=== PATIENT | female | born 1940 | race Caucasian/White ===

== ENCOUNTER 2018-12-10 11:35 | Inpatient (IN) | payer OTHER, MEDICAID ==
[~2018-12-10] VITALS: Ht 165.1 cm; Wt 60.0 kg
[2018-12-10 11:48] VITALS: Ht 165.1 cm; Wt 60.0 kg
--- NOTE | 2018-12-10 11:53 | NUR ---
PT SANJIV FROM HOME WITH CC OF PERIUMBILICAL ABD PAIN SINCE TODAY. PER MEDIC PT HAS HX OF PANCREATIC CA. PER MEDIC PT WAS HAVING N/V WELL AND TOOK HER AT HOME ZOFRAN WHICH HELPED WITH THE N/V. AT THIS TIME PT IS AWAKE AND ALERT AND ABLE TO FOLLOW ALL COMMANDS. PER MEDIC PT COMES IN AND OUT OF BECOMING ALTERED. PT STATES PAIN IS CONSTANT AND DULL. PT IS RECLINING ON GURNEY WITH NAD. PT HOOKED UP TO FULL MONITORS, SIDE RAILS UP, CALL LIGHT IN REACH, WILL CONTINUE TO MONITOR.
[2018-12-10 12:32] LABS: PLATELET COUNT 235 x10^3mcL (130-400); RED CELL DISTRIBUTION WIDTH 14.5 % (11.5-14.5)
[2018-12-10 12:33] LABS: BASOPHIL % 0 % (0-2)
--- NOTE | 2018-12-10 12:41 | NUR ---
PT DAUGHTER AT BEDSIDE. PT DAUGHTER STATES THAT HER MOM WASNT ANSWERING, SO SHE WENT OVER AND FOUND HER MOM LAYING IN BED WITH A HEATING PAD ON STOMACH AND ALTERED. STATES THAT IT DID LOOK LIKE SHE HAD EATEN BFAST. PT DAUGHTER STATES THAT PT HAS BEEN ALTERED OVER THE LAST COUPLE OF DAYS AND HALLUCINATING. DAUGHTER REQUESTING FOR FOOT PRESS OPERATOR DUE TO PT LIVING ALONE. MADE AWARE.
[2018-12-10 12:59] LABS: CALCIUM 9.9 mg/dL (8.5-10.1); CARBON DIOXIDE 18.2 mmol/L (21-32); CHLORIDE SERUM 96 mmol/L (98-107); CREATININE SERUM 1.6 mg/dL (0.6-1.0); GLUCOSE SERUM 380 mg/dL (74-106); POTASSIUM SERUM 4.1 mmol/L (3.5-5.1); SODIUM SERUM 132 mmol/L (136-145)
[2018-12-10 13:02] LABS: AST/SGOT 409 U/L (15-37); LIPASE 14 IU/L (73-393)
[2018-12-10 13:20] LABS: ALKALINE PHOSPHATASE 278 U/L (46-116); ALT/SGPT 176 U/L (14-59); BILIRUBIN TOTAL 1.64 mg/dL (0.20-1.00); TOTAL PROTEIN, SERUM 6.3 g/dL (6.4-8.2)
[2018-12-10 13:50] LABS: UA SPECIFIC GRAVITY 1.025 (1.005-1.035); microscopic required? YES; urine erythrocyte NEGATIVE (NEGATIVE)
--- NOTE | 2018-12-10 14:02 | NUR ---
GIVEN WATER; OKAY PER DR ROSS.
--- NOTE | 2018-12-10 14:57 | NUR ---
PT RESTING COMFORTABLY ON THE GURNEY WITH NAD. FAMILY REAMINS AT BEDSIDE. WILL CONTINUE TO MONITOR.
--- NOTE | 2018-12-10 15:22 | NUR ---
PT REQUESTING WATER. OK PER
--- NOTE | 2018-12-10 19:08 | NUR ---
[facility] NOTIFIED THAT FAMILY WOULD LIKE TO COMPLAIN ABOUT THE TRANSFER ATTEMPTS.
--- NOTE | 2018-12-10 19:20 | NUR ---
RECIEVED REPORT FROM NEGRITO, ASSUMING FURTHER CARE OF PT AT THIS TIME. PT IS A&0X4, SPEAKING CLEAR SENTENCES. APPEARS DROWSY BUT AROUSABLE BY VERBAL STIMULI. PT C/O NO PAIN AT THIS TIME. FAMILY AT BEDSIDE. WILL CONTINUE TO MONITOR.
--- NOTE | 2018-12-10 19:29 | NUR ---
DR ROSS AT BEDSIDE SPEAKING WITH PT AND FAMILY ABOUT PLAN OF CARE.
--- NOTE | 2018-12-10 19:45 | NUR ---
PT TO CT VIA [facility]
[2018-12-10] MEDS ORDERED: ZOFRAN4 M2 PO (19:52)
[2018-12-10] MEDS ORDERED: NORCO1 TA2 PO (19:52)
[2018-12-10] MEDS ORDERED: CREON1 EC1 PO (19:53)
[2018-12-10] MEDS ORDERED: PRE50 PO (19:53)
[2018-12-10] MEDS ORDERED: AMARYL4 MG PO (19:54)
[2018-12-10] MEDS ORDERED: POTASSIUM CHLO10 MEQ PO (19:54)
[2018-12-10] MEDS ORDERED: GABAPENTIN300 M4 PO (19:55)
[2018-12-10] MEDS ORDERED: IMODIUM A-1 MG/7.51 PO (19:55)
[2018-12-10] MEDS ORDERED: SYNTHROID0.112 MG PO (19:56)
[2018-12-10] MEDS ORDERED: FLAGYL500 MG PO (19:57)
[2018-12-10] MEDS ORDERED: CIPRO250 MG PO (19:57)
[2018-12-10] MEDS ORDERED: PROCARDIA XL30 MG PO (19:57)
--- NOTE | 2018-12-10 20:27 | NUR ---
PT OPENS EYES TO VERBAL STIMULI AND RESPONDS WITH GRUNTING SOUNDS, UNABLE TO RESPOND IN FULL CLEAR SENTENCES. DR HICKS MADE AWARE. NO FURTHER ORDERS AT THIS TIME.
--- NOTE | 2018-12-10 20:39 | NUR ---
DR HICKS MADE AWARE OF PTS BP OF 79/53 MAP OF 61. PER DR HICKS, START INPATIENT IV NS FLUID. IV FLUIDS RUNNING AT ORDERED RATE. CM [address] HICKS AT BEDSIDE SPEAKING WITH FAMILY AND ASSESSING PATIENT. PT ANSWERED "WHAT" CLEARLY WHEN ATTEMPTING TO TALK TO PT. PT STILL OPENS EYES TO VERBAL STIMULI. BREATHING EVEN AND UNLABORED. WILL CONTINUE TO MONITOR.
--- NOTE | 2018-12-10 20:58 | NUR ---
PT OBSERVED MOVING BUE AT THIS TIME. PT ABLE TO ANSWER "NO" CLEARLY WHEN ASKED IF SHE IS IN PAIN. DR HICKS AT BEDSIDE SPEAKING WITH FAMILY ABOUT PLAN OF CARE. WILL CONTINUE TO MONITOR.
--- NOTE | 2018-12-10 21:10 | NUR ---
LAB AT BEDSIDE.
--- NOTE | 2018-12-10 22:00 | NUR ---
PER DR HICKS LEVOPHED INITIATED AT 2 MCG/MIN FOR BP OF 88/54 MAP 65.
--- NOTE | 2018-12-10 22:05 | NUR ---
LEVOPHED MAINTAINED AT 2 MCG/MIN FOR BP OF 93/58 MAP 70
--- NOTE | 2018-12-10 22:10 | NUR ---
LEVOPHED MAINTAINED AT 2 MCG/MIN FOR BP AT 94/56 MAP 68
--- NOTE | 2018-12-10 22:16 | NUR ---
LEVOPHED INCREASED TO 4 MCG/MIN FOR BP 93/51 MAP 64.
--- NOTE | 2018-12-10 22:25 | NUR ---
CONSENT SIGNED FOR CENTRAL LINE PLACMENT AND PLACE IN PTS CHART.
--- NOTE | 2018-12-10 22:27 | NUR ---
LEVOPHED MAINTAINED AT 4 MCG/MIN FOR BP 102/47 MAP 74
--- NOTE | 2018-12-10 22:46 | NUR ---
DR HICKS AT BEDSIDE FOR CENTRAL LINE PLACEMENT.
--- NOTE | 2018-12-10 23:01 | NUR ---
PER GAYTAN TO USE CENTRAL LINE.
--- NOTE | 2018-12-10 23:02 | NUR ---
CALLED REPORT TO BARBARA MATOS IN ICU.
--- NOTE | 2018-12-10 23:09 | NUR ---
PT TRANSFERED TO ICU BED 3 VIA [facility] [place] ACCOMPANIED EMT QUIRINO AND RN LYN. PT AWAKENS TO VERBAL STIMULI. PT OBSERVED MOVING AROUND ON GURNEY. PT RESPONDS WITH SINGLE WORDS CLEARLY AND GRUNTING SOUNDS BUT IS NOT SPEAKING FULL SENTENCES. PT OPENS EYES SPONTANEOUSLY. FAMILY VERBALIZED UNDERSTANDING OF PLAN OF CARE. IV FLUIDS ENDORSED TO BARBARA MATOS IN ICU. FAMILY ACCOMPANIED PT TO ICU,
--- NOTE | 2018-12-10 23:15 | NUR ---
PT TRANSFERRED FOR ER VIA [facility] ACCOMPANIED BY RN AND EMT. PT TRANSFERRED TO ICU BED WITH FULL ASSIST. PT IS A/O X1 (NAME ONLY). PT WITH REPETITVE SPEECH WHEN ASKED SIMPLE QUESTIONS, PT WILL ONLY ANSWER WITH HER NAME. SPEECH CLEAR. PERRLA NOTED. NO INDICATIONS OF PAIN PER FLACC SCALE. NO ACUTE DISTRESS NOTED. NO SOB NOTED, RESPS E/U ON O2 2LPM VIA NC. CHEST RISE EQUAL AND SYMMETRICAL. LUNG SOUNDS CTA. TERMINOLOGIST IN PLACE SHOWING ST WITH HR 125. CHEST WALL STABLE. RIJ CVC INTACT, PORTS PATENT, DSG CDI. PER SYD MATOS IN ER, DR HICKS GAVE OKAY TO USE CENTRAL LINE. ALL LINES TRANSFERRED TO CENTRAL LINE, ALL LINES FLUSHED AND PATENT WITH GOOD BLOOD RETURN. IVF NS INFUSING @ 80ML/HR. LEVOPHED INFUSING @ 4 MCG/MIN. IV TO RFA AND LFA INTACT AND PATENT, NO S/SX OF INFILTRATION NOTED. ABD SOFT, ROUND, NONTENDER TO TOUCH. NO DISTENTION NOTED. BOWEL SOUNDS HYPOACTIVE. PTS DAUGHTER AT BEDSIDE PT HAS NOT URINATED THE WHOLE DAY. BLADDER SCAN DONE SHOWING 350ML, WILL INSERT F/C. GEN WEAKNESS NOTED. PT RESTLESS ATTMEPTING TO PULL ON LINES. BUE SOFT WRIST RESTRAINTS PLACED FOR PT SAFETY. FAMILY TEACHING PROVIDED, VERBALIZED UNDERSTANDING AND AGREED TO PLACE RESTRAINTS. UPDATED FAMILY ON PLAN OF CARE, ALL QUESTIONS AND CONCERNS ADDRESSED. CALL LIGHT WITHIN REACH. WILL CONTINUE TO MONITOR.
[2018-12-10 23:42] VITALS: BP 110/56
--- NOTE | 2018-12-11 00:30 | NUR ---
BP 95/62 MAP 73, LEVOPHED TITRATED TO 2 MCG/MIN.
--- NOTE | 2018-12-11 00:45 | NUR ---
PT CLEAN AND DRY. BLADDER SCAN DONE WITH RESIDUAL 375. 16FR F/C INSERTED AT EASE. 400ML YELLOW COLORED URINE NOTED. PT TOLERATED WELL.
--- NOTE | 2018-12-11 00:47 | NUR ---
BP 109/61 MAP 81, LEVOPHED TITRATED TO 1 MCG/MIN.
--- NOTE | 2018-12-11 01:18 | NUR ---
BP 78/51 MAP 60, LEVOPHED TITRATED TO 3 MCG/MIN.
--- NOTE | 2018-12-11 01:30 | NUR ---
BP 105/62 MAP 78, LEVOPHED TITRATED TO 2 MCG/MIN.
[2018-12-11 03:04] VITALS: BP 88/63
--- NOTE | 2018-12-11 05:14 | NUR ---
BP 125/59 MAP 96, LEVOPHED TITRATED TO 1 MCG/MIN.
--- NOTE | 2018-12-11 05:30 | NUR ---
BS 64; PT GIVEN D10% 250ML BAG INFUSING OVER 1 HR PER MD ORDER. WILL CONTINUE TO MONITOR.
[2018-12-11 05:49] LABS: BASOPHIL % 0.1 % (0-2); PLATELET COUNT 187 x10^3mcL (130-400)
[2018-12-11 05:52] LABS: CALCIUM 8.9 mg/dL (8.5-10.1); CARBON DIOXIDE 19.9 mmol/L (21-32); CHLORIDE SERUM 101 mmol/L (98-107); CREATININE SERUM 1.8 mg/dL (0.6-1.0); GLUCOSE SERUM 64 mg/dL (74-106); MAGNESIUM 1.3 mg/dL (1.8-2.4); SODIUM SERUM 128 mmol/L (136-145)
[2018-12-11 05:53] LABS: RED CELL DISTRIBUTION WIDTH 14.9 % (11.5-14.5)
--- NOTE | 2018-12-11 06:47 | NUR ---
REPORT ABNORMAL LABS TO DR ESTEVEZ. ORDER GIVEN FOR MAG SULFATE 4MG IV X1 NOW. TELEPHONE ORDER READ BACK. ORDER NOTED AND CARRIED OUT.
--- NOTE | 2018-12-11 06:47 | NUR ---
FLOR HALL CALLED, UPDATED ON STATUS. ALL QUESTIONS AND CONCERNS ADDRESSED.
--- NOTE | 2018-12-11 06:54 | NUR ---
BP 96/54 MAP 70, LEVOPHED TURNED OFF AT THIS TIME
[2018-12-11 07:47] VITALS: BP 115/60
--- NOTE | 2018-12-11 08:43 | NUR ---
PROVIDED PT STATUS UPDATES TO DR. HANSON. MADE AWARE TO DR. HANSON THAT PT IS OFF LEVOPHED AND PT'S WBC IS ELEVATED TO 26.9. RECIEVED NO NEW ORDES.
--- NOTE | 2018-12-11 10:29 | NUR ---
LACTIC ACID 3.9, DR. VALENTIN MARQUES.
[2018-12-11 11:11] VITALS: BP 104/61
--- NOTE | 2018-12-11 13:38 | NUR ---
ATTEMPTED TO FEED PT AT BEDSIDE, PT COMPLAINED FOOD DOESN'T TASTE GOOD AND REFUSE LUNCH AFTER TAKING COULE OF BITES OF FOOD. SON IS AT BEDSIDE.
--- NOTE | 2018-12-11 13:39 | NUR ---
SPOKE WITH DR HANSON AND REPORTED LACTIC AND POSITIVE BLOOD CULTURE OF OF GRAM NEGATIVE BACILLI. NEW ORDERS RECEIVED TO DUANE EDWARDS AND CLYDE AND PATIENT STABLE TO TRANSFER TO TELE. WILL CARRY OUT ORDERS.
[2018-12-11 15:02] VITALS: BP 116/69
--- NOTE | 2018-12-11 16:56 | NUR ---
REPORT GIVEN TO VALENTIN MATOS. WILL TRANSFER BY BED WITH PORTABLE O2 TO ROOM 210B. PT HAS ALL PERSONAL BELONGINGS.
--- NOTE | 2018-12-11 17:35 | NUR ---
RECEIVED PATIENT FROM ICU. PATIENT ALERT/DISORIETED. B/S = 52, REPEATED BS 54. SUGAR ADDED APPLE JUICE 120CC PO GIVEN. TELE #2, SR W/ BBB; HR = 90. V/S = 98.2-90-18-123/64 (93); P2 SAT 96% ON 2L VIA N/C. IVF OF NS 80CC/HR PER ORDER. CENTRAL LINE TO RIJ W/ DRSG INTACT. IVHL'D TO RFA AND LAC. SKINNER PATENT. NEGRITO URINE NOTED. DAILY WRIST SOFT RESTRAINTS ON. DENIED PAIN. CALL LIGHT IN REACH.
[2018-12-11 17:48] VITALS: BP 123/64
--- NOTE | 2018-12-11 19:18 | NUR ---
PT WAS SEEN SITTING ON THE EDGE OF THE BED, PT IS CONFUSED. PT'S CENTRAL LINE WAS SEEN AT THE BEDSIDE, TIP WAS INTACT, NO S/S OF BLEEDING NOTED. PT WAS ALSO SEEN HOLDING THE PERIPHERAL IV CATHETER GAUGE 22, CATHETER WAS ALSO INTACT, NO BLEEDING NOTED. DR. HANSON WAS MADE AWARE.
--- NOTE | 2018-12-11 19:35 | NUR ---
PT PULLED OUT ANOTHER PERIPHERAL IV LINE, NOTED PIV CATHETER GAUGE 20 ON THE FLOOR, CATHETER WAS INTACT. PT PLACED BACK ON BED, PLACED BACK ON BILATERAL SOFT WRIST RESTRAINTS, NO INJURY NOTED TO THE AREA. STILL W/ SKINNER CATHETER DRAINING W/ YELLOW COLORED URINE. PRIMARY NURSE DEVORAH AT BEDSIDE
--- NOTE | 2018-12-11 20:03 | NUR ---
Awake and verbally responsive. Alert and oriented x1. Agitated, restless. notified about the restraints and new order for haldol IM. Will medicated as ordered. Pt. not on distress.
--- NOTE | 2018-12-11 20:13 | NUR ---
Awake, restless and agitated. Trying to pull out snow catheter and get out of bed. uncooperative with staff. Tried to calm down and reassurance provided but very confused and disoriented. No indication of understanding. Exhibits poor safety judgement. Medicated as ordered with Haldol IM. Will cont.to monitor.
[2018-12-11 21:10] VITALS: BP 115/88
--- NOTE | 2018-12-11 21:15 | NUR ---
Resting at this time with eyes closed. Easily arousable. Calm and cooperative. Will cont.to monitor. Safety maintained.
--- NOTE | 2018-12-12 01:00 | NUR ---
Woke up, restless and agitated. Pulled out IV and tried to get out of bed. Stated" Bring me to the hospital".Oriented to place and time but remained confused and disoriented. Will cont.to monitor.
--- NOTE | 2018-12-12 02:05 | NUR ---
Asleep at this time.
--- NOTE | 2018-12-12 04:09 | NUR ---
Remained confused and disoriented. Bilateral soft wrist restraints in placed. Released and reapplied Q2h x10min. ROM performed. No circulatory impairment. Repositioned for comfort. In no apparent distress.
[2018-12-12 06:06] VITALS: BP 182/102
[2018-12-12 06:37] VITALS: BP 134/65
[2018-12-12 06:39] LABS: ALKALINE PHOSPHATASE 173 U/L (46-116); ALT/SGPT 115 U/L (14-59); AST/SGOT 154 U/L (15-37); BILIRUBIN TOTAL 1.57 mg/dL (0.20-1.00); CALCIUM 8.4 mg/dL (8.5-10.1); CARBON DIOXIDE 20.5 mmol/L (21-32); CHLORIDE SERUM 107 mmol/L (98-107); CREATININE SERUM 1.5 mg/dL (0.6-1.0); MAGNESIUM 2.3 mg/dL (1.8-2.4); POTASSIUM SERUM 3.5 mmol/L (3.5-5.1); SODIUM SERUM 140 mmol/L (136-145)
[2018-12-12 06:55] LABS: PLATELET COUNT 129 x10^3mcL (130-400); RED CELL DISTRIBUTION WIDTH 15.5 % (11.5-14.5)
--- NOTE | 2018-12-12 07:00 | NUR ---
FSBS=35, REPEATED=39 D10% 250MLS IV GIVEN PER PROTOCOL. RECHECKED ZELF=213 AFTER. PT.AWAKE AND VERBALLY RESPONSIVE. REFUSING TO TAKE ANYTHING BY MOUTH. RECEIVED CRITICAL LAB VALUE WBC=20.1, PAGED DR. HANSON TO NOTIFY. WAITING FOR CALL BACK.
--- NOTE | 2018-12-12 07:30 | NUR ---
RECEIVED PT FROM SCHEME TECHNICIAN RN. ORIENTED TO SELF. TELE#2. RESPIRATIONS EQUAL AND UNLABORED ON RA. NO ACUTE RESP DISTRESS NOTED. PT ATTEMPTING TO TAKE OFF RESTRAINTS AND REMOVE IV. PT REFUSING TO EAT BREAKFAST, IV TO RFA PATENT AND INFUSING, NO REDNESS OR SWELLING NOTED. BILATERAL SOFT WRIST RESTRAINTS IN PLACE, CIRCULATION WNL. SITTER AT BEDSIDE. WILL CONTINUE TO MONITOR. CALL LIGHT IN REACH. BED IN LOWEST POSITION.
[2018-12-12 07:41] LABS: ALBUMIN 2.1 g/dL (3.4-5.0); TOTAL PROTEIN, SERUM 5.1 g/dL (6.4-8.2)
[2018-12-12 07:46] LABS: GLUCOSE SERUM 40 mg/dL (74-106)
--- NOTE | 2018-12-12 08:01 | NUR ---
SPOKE WITH DR. HANSON REGARDING GLUCOSE LEVEL OF 40. PER DR. HANSON ORDERED D5 1/2 NS AT 60 ML/HR. CONFIRMED ORDER TORB.
[2018-12-12 10:49] LABS: BAND NEUTROPHIL 8 % (0-10); BASOPHIL 0 % (0-2); MONOCYTE 5 % (0-7); SEGMENTED NEUTROPHILS 86 % (37-75)
[2018-12-12 10:51] LABS: PLATELET MORPHOLOGY PLATELETS DECREASED
[2018-12-12 10:52] LABS: burr cell (echinocyte) 2+; rbc morphology (normal/abnorm) ABNORMAL (NORMAL)
--- NOTE | 2018-12-12 11:10 | NUR ---
PT IN BED RESTING. NO ACUTE RESP DISTRESS NOTED ON RA. PT CONFUSED FORGETTING WHERE SHE IS. PT IS MORE CALM AND ASKING WHY SHE HAS RESTRAINTS ON. REORIENTED PT. FAMILY AT BEDSIDE. REMOVED ONE RESTRAINTS. GIVEN PO MEDS. TOLERATED WELL. FAMILY WOULD LIKE TO SPEAK WITH FURNACE ATTENDANT STEWART REGARDING HOSPICE. FURNACE ATTENDANT STEWART MADE AWARE. WILL CONTINUE TO MONITOR. CALL LIGHT IN REACH. BED IN LOWEST POSITION.
--- NOTE | 2018-12-12 12:56 | NUR ---
PT SITTING UP IN BED. NO ACUTE RESP DISTRESS NOTED ON RA. IV PATENT AND INFUSING TO RW. NO REDNESS OR SWELLING NOTED. SKINNER CATHETER REMOVED 950 ML OF CLEAR YELLOW URINE EMPTIED. PT TOLERATED WELL. BLOOD SUGAR CHECKED WAS 88. NO COVERAGE NEEDED. GIVEN PO MEDS. TOLERATED WELL. PT EATING LUNCH. FAMILY AT BEDSIDE. WILL CONTINUE TO MONITOR. CALL LIGHT IN REACH. BED IN LOWEST POSITION.
--- NOTE | 2018-12-12 13:19 | NUR ---
1. Recommend Glucerna BID d/t poor PO. 2.Recommend continuing CCHO diet. 3.Diet education provided
--- NOTE | 2018-12-12 13:19 | NUR ---
Initial Nutrition Assessment- 210T/B YAMILEX HOWARD IA HR Dx: Abd pain, pancreatic CA PMHx: DM, Pancreatic CA PSHx: not documented Labs: BG 40L, BUN 28H, CREAT 1.5H, ALB 2.1L, A1C 7.9H, AST 154H, ALT 115H, WBC 20.1H Meds: Colace, NS, D10%, humulin, pancrease, Zofran, heparin Diet: CCHO PO Intake: not documented. Per pt, <50% Ht: 165.1 cm (65") Wt: 60kg (132#) BMI: 22 kg/m2 IBW: 125# (57 kg) %IBW: 105 UBW: pt was unaware Age: 78/F Food Allergies: NKFA Skin: BUE ecchymosis Avinash: 18 Edema: none GI: last BM: 12/10 Per H&P, patient is an 78-year-old Female with history of pancreatitic cancer who was brought in by EMS for evaluation of epigastric and right lower quadrant abdominal pain today. The patient believes she had an episode of diarrhea this morning. The patient is unable to tell me when she had cancer and is not quite sure if she is receiving chemotherapy at this time. Per progress note (12/12) pt has Sepsis/septic shock due to Gram-negative bacteremia. MD to continue antibiotic therapy currently on Zosyn since 12/10. RDN visit(12/12): Pt was not very willing to answer questions. Daughter came by bedside after sometime. Pt said that she did not eat her breakfast this morning because she did not take enough effort to eat it. Pt at first seemed reluctant to drink oral nutritional supplement by later agreed to it. Pt's daughter said that pt had consumed oral nutritional supplements like ensure in the past. Problem with: N/V/D/C: no Problems with: Chewing/Swallowing: no Current appetite: fair Recent wt change: patient unaware Vitamin/Supplement use: per daughter, pt has a box full of MVI, potassium and vitamin D but pt says she does not consume it. Special diet at home: Regular Physical activity: none Education: Diet education pertaining to MNT for pancreatic cancer was given using [facility] handout on "Oncology: nutrition tips for well-being" Estimated Nutritional Needs Based on actual body weight 60 kg Energy: 6455-1884 kcal/d (30-35 kcal/kg- Sepsis) Protein: 72-78 g/d (1.2-1.3 g/kg)-maintenance and preservation of lean body mass Fluid: 6122-3765 ml/d (1 ml/kcal-fluid balance) or per doctor Nutrition Diagnosis 1. Inadequate oral intake related to poor appetite/medical condition as evidenced by self-reported PO <50%. 2. Increased nutrient needs related to sepsis as evidenced by WBC 20.1 and estimated calorie and protein needs. Intervention 1. Recommend Glucerna BID d/t poor PO. 2.Recommend continuing CCHO diet. 3.Diet education provided. Monitor/Evaluate Goal: PO intake at least 75% of estimated needs Monitor: PO intake, Labs, GI function F/U in 2-3 days as high risk
--- NOTE | 2018-12-12 13:23 | NUR ---
CALLED AND GAVE REPORT SIDRA MATOS AT [facility].
--- NOTE | 2018-12-12 13:39 | NUR ---
SPOKE WITH DR. HANSON INFORMED HIM FAMILY WOULD LIKE TO SPEAK WITH HIM REGARDING PT POC. PER DR. HANSON HE WILL CALL BACK LATER.
--- NOTE | 2018-12-12 17:35 | NUR ---
PT SITITNG UP IN BED. SON AT BEDSIDE. NO ACUTE RESP DISTRESS NOTED ON RA. PT DENIES ANY PAIN AT THIS TIME. PT CALM AND COOPERATIVE AT THIS TIME. GIVEN PO MEDS. TOLERATED WELL. IV PATENT AND INFUSING TO RW. NO REDNESS OR SWELLING NOTED. WILL CONTINUE TO MONITOR. CALL LIGHT IN REACH. BED IN LOWEST POSITION.
--- NOTE | 2018-12-12 18:51 | NUR ---
PT SITTING UP IN BED. PT STILL CONFUSED. PT BELIEVES SHES IN A GARAGE. TELE#2. SON AT BEDSIDE. PT CALM AT THIS TIME. PT ATE DINNER, TOLERATED WELL. PT DENIES ANY PAIN AT THIS TIME. IV TO RW PATENT AND INFUSING. NO REDNESS OR SWELLING NOTED. WILL ENDORSE TO [employer] SYSTEMS ASSEMBLER RN. CALL LIGHT IN REACH. BED IN LOWEST POSITION.
--- NOTE | 2018-12-12 19:30 | NUR ---
RECIEVED PATIENT AT START OF SHIFT A/O TO SELF ONLY. PATIENT IS AGITATED BECAUSE SHE BELIEVES SHE IS BEING KEPT IN THE HOSPITAL BASEMENT, DESPITE EFFORTS TO RE-ORIENT PAIENT TO REALITY. SON AND NURSE ASSESSOR AT BEDSIDE TO KEEP PATIENT CALM. ON TELE #2 SR WITH BBB. LUNGS CTAB, NO SOB ON RA. ABDOMEN SOFT AND FLAT, BS ACTIVE. SPOTTED PURPLE DISCOLORATION NOTED TO BUE. IV TO RW INFUSING WITHOUT ERYTHEMA OR INFILTRATION. BED LOCKED AND IN LOWEST POITION. CALL LIGHT AND BEDSIDE TABLE WITHIN REACH. WILL CONTINUE TO MONITOR.
--- NOTE | 2018-12-12 20:00 | NUR ---
PATIENT IS BECOMING INCREASINGLY AGITATED. SHE IS YELLING THAT SHE WANTS OUT OF THE BASEMENT. EFFORTS TO CALM PATIENT AND REORIENT PATIENT HAVE FAILED. WILL ADMINISTER HALDOL IM PER EMAR.
--- NOTE | 2018-12-12 20:30 | NUR ---
PATIENT IS MUCH MORE RELAXED. EYES CLOSED, BREATHS EVEN. STUMMEL SELECTOR AT BEDSIDE TO MONITOR.
[2018-12-12 21:00] VITALS: BP 161/90
--- NOTE | 2018-12-13 00:01 | NUR ---
PATIENT IS AGITATED AND RESTLESS AGAIN. TELEPHONE ORDER OBTAINED FOR ATIVAN [address] WALLER. GIVEN PER EMAR.
--- NOTE | 2018-12-13 00:45 | NUR ---
PATIENT IS RELAXED AGIAN, EYES CLOSED, BREATHS EVEN.
--- NOTE | 2018-12-13 05:45 | NUR ---
PATIENT'S BLOOD GLUCOUSE THIS MORNING WAS 49. REPEAT SUAGAR WAS 47.PATIENT IS ALERT AND RESPONSIVE. FOLLOWS COMMANDS. PROTOCOL INITIATED. DEX 10% 250 MLS/ HR STARTED. WILL RECHECK SUGAR ONCE COMPLETED.
[2018-12-13 05:49] VITALS: BP 156/85
[2018-12-13 05:52] LABS: RED CELL DISTRIBUTION WIDTH 14.4 % (11.5-14.5)
[2018-12-13 06:38] LABS: ALKALINE PHOSPHATASE 200 U/L (46-116); ALT/SGPT 87 U/L (14-59); AST/SGOT 68 U/L (15-37); BILIRUBIN TOTAL 0.63 mg/dL (0.20-1.00); CALCIUM 8.9 mg/dL (8.5-10.1); CARBON DIOXIDE 23.7 mmol/L (21-32); CHLORIDE SERUM 108 mmol/L (98-107); CREATININE SERUM 1.2 mg/dL (0.6-1.0); POTASSIUM SERUM 3.6 mmol/L (3.5-5.1); SODIUM SERUM 141 mmol/L (136-145)
[2018-12-13 06:39] LABS: ALBUMIN 2.2 g/dL (3.4-5.0); TOTAL PROTEIN, SERUM 5.4 g/dL (6.4-8.2)
[2018-12-13 06:40] LABS: GLUCOSE SERUM 54 mg/dL (74-106)
--- NOTE | 2018-12-13 06:53 | NUR ---
BLOOD SUGAR HAS IMPROVED TO 146. PATIENT IS COMFORTABLE IN BED. IV INFUSING WELL, NO ERYTHEMA OR INFILTRATION. BED LOCKED AND IN LOWEST POSIITON. CALL LIGHT WITHIN REACH. WILL ENDORSE CARE TO MORNING NURSE.
[2018-12-13 07:29] LABS: PLATELET COUNT 109 x10^3mcL (130-400)
--- NOTE | 2018-12-13 08:23 | NUR ---
REPORT RECEIVED. ASLEEP ON HANDOFF REPORT. RR 16. CALL ROOT WITHIN REACH. BED LOW AND LOCKED. SCDS APPLIED.
--- NOTE | 2018-12-13 09:20 | NUR ---
MD HANSON ASSESSED PT. TO DC CENTRAL LINE RIGHT NECK TODAY. SITTER IN ROOM BED LOW AND LOCKED. NO COMPLAINTS AT THIS TIME.
[2018-12-13 10:04] VITALS: BP 179/101
--- NOTE | 2018-12-13 10:41 | NUR ---
BP 179/101. ASYMPTOMATIC. PLACED A PAGE TO DR. HANSON.
[2018-12-13 10:50] VITALS: BP 167/88
--- NOTE | 2018-12-13 12:06 | NUR ---
DR. HANSON RETURNED MY CALL AND INFORMED HIM RE HIGH BP, REFUSAL TO WORK WITH PT. ORDER GIVEN. MIDODRINE DISCONTINUED
[2018-12-13 13:49] LABS: BAND NEUTROPHIL 0 % (0-10); BASOPHIL 0 % (0-2); MONOCYTE 1 % (0-7); PLATELET MORPHOLOGY PLATELETS NORMAL; SEGMENTED NEUTROPHILS 92 % (37-75); rbc morphology (normal/abnorm) NORMAL (NORMAL)
--- NOTE | 2018-12-13 15:35 | NUR ---
TAKING OVER CARE FROM MAIA MATOS. PT WET AND UNCOOPERATIVE. PT GOT UP TO CHAIR WITHOUT AND REGARD OF HER IV. SHE WET WHILE SITTING UP IN THE CHAIR. CHANGED GOWN TWICE. SINCE TAKING OVER CARE.
--- NOTE | 2018-12-13 16:22 | NUR ---
PTS DTR FLOR WANTS TO SPEAK TO ABOUT HOSPICE. SHE WANTS TO KNOW IF PT REALLY NEEDS TO BE ON HOSPICE. T.C. TO DR. ALEXANDRE OFFICE WHO IS RHEUMATOLOGY NURSE FOR DR. ESTEVEZ ALSO NEED TO SPEAK TO RE: PTS ELEVATED BP.
[2018-12-13 16:24] VITALS: BP 181/102
--- NOTE | 2018-12-13 19:15 | NUR ---
PT RECEIVED A/O X2, WITH EPISODES OF CONFUSION, ABLE TO MAKE NEEDS KNOWN. TELE #2, DENIES ANY CP/PRESSURE. BREATHING IS EVEN AND UNLABORED ON RA, DENIES SOB, NO RESP DISTRESS NOTED. ABD SOFT AND NONDISTENDED, DENIES N/V. VOIDS FREELY, PT USES BEDPAN, BUT MAY HAVE EPISODES OF URINARY INCONTINENCE. GENERALIZED WEAKNESS. ECCHYMOSIS TO BUE, CHIROPRACTIC NEUROLOGIST. PT DENIES HAVING ANY PAIN AT THIS TIME. IVF INFUSING WELL TO RH, SITE FREE FROM REDNESS OR SWELLING. NO ACUTE DISTRESS NOTED. EXCEPTIONAL CHILDREN'S TEACHER AT BEDSIDE TO ASSIST WITH ADLs. BED IN LOWEST SETTING, SIDE RAILS UP X2, CALL LIGHT WITHIN REACH. WILL CONT TO MONITOR.
--- NOTE | 2018-12-13 19:17 | NUR ---
SLEEPING OFF AND ON. NO C/O PAIN. CONTENT MANAGER HELPFUL WITH BRP. P.T. WANTS TO KEEP PT ON SERVICE. D51/2 NS 60 CC HOUR. ZOSYN AND FLAGYL IV ABX. DTR FLOR IS TRYING TO MAKE DECISION TO WHETHER PT SHOULD GO HOME ON HOSPICE OR NOT. NEW ORDER FOR METOPROLOL. ASSIST WITH ADL'S. BED ALARM ON AND CALL LIGHT WITHIN REACH.
[2018-12-13 21:56] VITALS: BP 177/97
--- NOTE | 2018-12-13 22:05 | NUR ---
PT C/O 12/31 GENERALIZED BODY PAIN, PRN TYLENOL GIVEN ORDERED. NO ACUTE DISTRESS NOTED. CALL LIGHT WITHIN REACH. WILL CONT TO MONITOR.
[2018-12-14 06:38] VITALS: BP 162/88
--- NOTE | 2018-12-14 07:05 | NUR ---
RECEIVED BEDSIDE REPORT FROM AMPHIBIAN CREWMEMBER NURSE AT THIS TIME. PATIENT RESTING COMFORTABLY IN BED. NO APPARENT DISTRESS OR DISCOMFORT NOTED. BREATHING EVEN AND UNLABORED. PATIENT DENIES SHORTNESS OF BREATH. PATIENT DENIES CHEST PAIN AT THIS TIME. TELE [address] BUE ECHYMOSIS NOTED. IV PATENT AND INTACT. ALL QUESTIONS AND CONCERNS ADDRESSED. ALL NEEDS ATTENDED TO. SITTER AT BEDSIDE TO PROMOTE PATIENT SAFETY. WILL CONTINUE TO MONITOR
[2018-12-14 07:06] LABS: PLATELET COUNT 86 x10^3mcL (130-400); RED CELL DISTRIBUTION WIDTH 15.2 % (11.5-14.5)
--- NOTE | 2018-12-14 07:26 | NUR ---
PT SLEPT WELL THROUGHOUT THE EVENING. BREATHING IS EVEN AND UNLABORED, NO RESP DISTRESS NOTED. PT C/O 6/10 BACK PAIN, PRN TYLENOL GIVEN ORDERED. IVF INFUSING WELL TO RH, SITE FREE FROM REDNESS OR SWELLING. NO ACUTE CHANGES ENCOUNTERED DURING SHIFT. ALL NEEDS MET. PRINCIPAL LIBRARIAN AT BEDSIDE TO ASSIST WITH ADLs. BED ALARM ON, CALL LIGHT WITHIN REACH. CONTINUITY OF CARE ENDORSED TO ROMMEL MATOS. ALL QUESTIONS AND CONCERNS ADDRESSED.
[2018-12-14 07:32] LABS: ALKALINE PHOSPHATASE 255 U/L (46-116); ALT/SGPT 66 U/L (14-59); AST/SGOT 31 U/L (15-37); BILIRUBIN TOTAL 0.6 mg/dL (0.20-1.00); CALCIUM 8.3 mg/dL (8.5-10.1); CARBON DIOXIDE 26.4 mmol/L (21-32); CHLORIDE SERUM 106 mmol/L (98-107); GLUCOSE SERUM 120 mg/dL (74-106); MAGNESIUM 1.6 mg/dL (1.8-2.4); POTASSIUM SERUM 3.5 mmol/L (3.5-5.1); SODIUM SERUM 139 mmol/L (136-145)
[2018-12-14 07:35] LABS: ALBUMIN 2.1 g/dL (3.4-5.0); TOTAL PROTEIN, SERUM 5.2 g/dL (6.4-8.2)
[2018-12-14 08:59] VITALS: BP 168/93
--- NOTE | 2018-12-14 09:14 | NUR ---
PATIENT C/O 7/10 PAIN AT TIME AND REFUSING TYLENOL. SPOKE TO DR HANSON REGARDING PATIENT PAIN. PER DR HANSON, TELEPHONE ORDER FOR NORCO 5/325 Q4 PRN. TELEPHONE ORDER READ BACK, CONFIRMED, AND FOLLOWED THROUGH. ALL NEEDS ATTENDED TO. WILL CONTINUE TO MONITOR
--- NOTE | 2018-12-14 09:33 | NUR ---
ALL MORNING MEDICATIONS ADMINISTERED. PATIENT TOLERATED ADMINISTRATION WELL. NO ADVERSE EFFECTS NOTED. NO APPARENT DISTRESS OR DISCOMFORT NOTED. ALL NEEDS ATTENDED TO. WILL CONTINUE TO MONITOR
--- NOTE | 2018-12-14 11:13 | NUR ---
1. Recommend continuing CCHO diet with Glucerna BID.
--- NOTE | 2018-12-14 11:13 | NUR ---
Follow-up Nutrition Assessment- 210T/B YAMILEX HOWARD FU HR Dx: Abd pain, pancreatic CA Labs: BG 120H, ALB 2.1L, A1C 7.9H, ALT 66H Meds: Colace, NS, D10%, humulin, pancrease, Zofran Diet: CCHO PO intake: (12/14) breakfast 30%, (12/13) breakfast 40% Weights: (12/10) 59 kg, (12/11) 60 kg Skin: ecchymosis to BUE Avinash: 18 I/O: (12/13) 2770 ml/ 1650 ml Edema: none Last BM: 12/12 RDN Visit (12/14): pt was sleeping, er tech Nora was sitting by the bedside and she said that pt does not have any N/V and she ate about 40% of her breakfast this morning. Previous RDN visit(12/12): Pt was not very willing to answer questions. Daughter came by bedside after sometime. Pt said that she did not eat her breakfast this morning because she did not take enough effort to eat it. Pt at first seemed reluctant to drink oral nutritional supplement by later agreed to it. Pt's daughter said that pt had consumed oral nutritional supplements like ensure in the past. Estimated Nutritional Needs Based on actual body weight 60 kg Energy: 6778-3185 kcal/d (30-35 kcal/kg- Sepsis) Protein: 72-78 g/d (1.2-1.3 g/kg)-maintenance and preservation of lean body mass Fluid: 5845-9812 ml/d (1 ml/kcal-fluid balance) or per doctor Nutrition Diagnosis 1.Inadequate oral intake related to poor appetite/medical condition as evidenced by self-reported PO <50%. 2.Increased nutrient needs related to sepsis as evidenced by WBC 20.1 and estimated calorie and protein needs. Intervention 1. Recommend continuing CCHO diet with Glucerna BID. Monitor/Evaluate Previous goal: Glucerna BID Goal: PO intake at least 75% of estimated needs Monitor: PO intake, Labs, GI function F/U in 3-5 days as moderate risk 12/17-
--- NOTE | 2018-12-14 12:39 | NUR ---
PATIENT BLOOD SUGAR 187 AT THIS TIME. 3 UNITS INSULIN ADMINISTERED FOR COVERAGE. PATIENT TOLERATED WELL. NO APPARENT DISTRESS OR DISCOMFORT NOTED. ALL NEEDS ATTENDED TO. WILL CONTINUE TO MONITOR
[2018-12-14 13:59] VITALS: BP 155/77
[2018-12-14 14:37] LABS: ATYPICAL LYMPH 0 %; BAND NEUTROPHIL 8 % (0-10); SEGMENTED NEUTROPHILS 86 % (37-75)
[2018-12-14 14:38] LABS: MONOCYTE 5 % (0-7); PLATELET MORPHOLOGY PLATELETS DECREASED
[2018-12-14 14:46] LABS: rbc morphology (normal/abnorm) ABNORMAL (NORMAL)
--- NOTE | 2018-12-14 15:16 | NUR ---
PATIENT RESTING COMFORTABLY IN BED AT THIS TIME. NO APPARENT DISTRESS OR DISCOMFORT NOTED. FAMILY MEMBERS AT BEDSIDE AT THIS TIME. SITTER AT BEDSIDE TO PROMOTE PATIENT SAFETY. ALL NEEDS ATTENDED TO. WILL CONTINUE TO MONITOR
--- NOTE | 2018-12-14 16:28 | NUR ---
SPOKE TO DR HANSON REGARDING PATIENT MAGNESIUM 1.6. PER DR HANSON, TELEPHONE ORDER FOR 2GM MAG RIDER. TELEPHONE ORDER READ BACK, CONFIRMED, AND FOLLOWED THROUGH. WILL CONTINUE TO MONITOR
[2018-12-14 17:37] VITALS: BP 139/85
--- NOTE | 2018-12-14 19:38 | NUR ---
PATIENT RESTING COMFORTABLY IN BED AT THIS TIME. NO APPARENT DISTRESS OR DISCOMFORT NOTED. IV PATENT AND INTACT. ALL QUESTIONS AND CONCERNS ADDRESSED. SAFETY PRECAUTIONS MAINTAINED. ALL NEEDS ATTENDED TO. SITTER AT BEDSIDE TO PROMOTE PATIENT SAFETY. WILL ENDORSE ALL CARE TO CLAM BED WORKER NURSE
--- NOTE | 2018-12-14 19:45 | NUR ---
PT BLOOD PRESSURE 160/89, PAGED DR PULIDO TO NOTIFY
--- NOTE | 2018-12-14 19:45 | NUR ---
RECIEVED PATIENT RESTING IN BED WITH NO ACUTE DISTRESS NOTED AT THIS TIME, PT IS A/OX2 TO PERSON AND PLACE, PERIPHERAL PULSES PALPABLE THROUGHOUT, NO EDEMA NOTED AT THIS TIME, LUNG SOUNDS CTA, DENIES SOB AT THIS TIME, PT ABD SOFT ROUND, TENDER UPON PALPATION, PT VOIDS FREE OF BURNING OR IRRITATION, PT IS AMBULATORY WITH WALKER AT BEDSIDE, SITTER IS PRESENT AT BEDSIDE, SAFETY PRECAUTIONS IN PLACE WILL CONTINUE TO MONITOR
--- NOTE | 2018-12-14 20:06 | NUR ---
DR PULIDO CALLED AND I INFORMED HIM OF PT BLOOD PRESSURE OF 160/89, DR PULIDO ORDERED HYDRALIZINE IVP PRN Q4H FOR SBP GREATER THAN 160, AND CLONADINE PO PRN Q4H FOR SBP GREATER THAN 160
--- NOTE | 2018-12-15 00:45 | NUR ---
PT SLEEPING IN BED NO SIGNS OF STRESS NOTED AT THIS TIME, SAFETY PRECAUTIONS IN PLACE WILL CONTINUE TO MONITOR
--- NOTE | 2018-12-15 02:45 | NUR ---
PT RESTING IN BED COMFORTABLY NO SIGNS OF DISTRESS NOTED AT THIS TIME, SAFETY PRECAUTIONS IN PLACE WIIL CONTINUE TO MONITOR
--- NOTE | 2018-12-15 05:34 | NUR ---
PT RESTED THROUGH MOST OF THE NIGH AND WAS COOPERATIVE WITH CARE,PT HAD NO EPISODES OF PAIN OR SOB, SITTER WAS AT BEDSIDE THROUGH SHIFT, SAFETY PRECAUTIONS WERE MAINTAINED THROUGH SHIFT, WILL CONTINUE TO MONITOR AND ENDORESE CARE TO ONCOMING RN
[2018-12-15 06:06] VITALS: BP 148/72
[2018-12-15 07:16] LABS: BASOPHIL % 0.2 % (0-2)
[2018-12-15 07:20] LABS: PLATELET COUNT 97 x10^3mcL (130-400); RED CELL DISTRIBUTION WIDTH 15.3 % (11.5-14.5)
[2018-12-15 07:26] LABS: ALKALINE PHOSPHATASE 264 U/L (46-116); ALT/SGPT 58 U/L (14-59); AST/SGOT 20 U/L (15-37); BILIRUBIN TOTAL 0.5 mg/dL (0.20-1.00); CALCIUM 8.5 mg/dL (8.5-10.1); CARBON DIOXIDE 25.2 mmol/L (21-32); CHLORIDE SERUM 104 mmol/L (98-107); GLUCOSE SERUM 157 mg/dL (74-106); MAGNESIUM 1.6 mg/dL (1.8-2.4); POTASSIUM SERUM 3.4 mmol/L (3.5-5.1); SODIUM SERUM 137 mmol/L (136-145)
--- NOTE | 2018-12-15 07:30 | NUR ---
AAOX3. NO SOB AT RM AIR. REPORTS ON/OFF DULL RT QUADRANT ABD PAIN. DENIES ANY PAIN AT THIS TIME. ABD IS SOFT, ROUNDED, NONDISTENDED; BS+ ON 4 QUADS; ECCHYMOSIS NOTED ON THE RLQ ABD. IVF D5 1/2 NS AT 60 ML/HR INFUSING; LAC SITE PATENT BUT POSITTIONAL THAT CAUSES PRESSURE AND IV MACHINE KEEPS ON BEEPING CONSTANTLY. SITTER IN THE ROOM FOR SAFETY DUE TO PT'S EPISODES OF HALLUCINATION PREVIOUSLY PER OUTOING RN ENDORSEMENT; DENIES HALLUCINATION AT THIS TIME. FALL AND SAFETY PRECAUTION REINFORCED; WILL CONTINUE TO MONITOR STATUS.
[2018-12-15 07:35] LABS: ALBUMIN 2.3 g/dL (3.4-5.0); TOTAL PROTEIN, SERUM 5.7 g/dL (6.4-8.2)
--- NOTE | 2018-12-15 08:20 | NUR ---
NORCO PO ADMINISTERED FOR C/O ABD PAIN 03/02, "DULL"; WILL CONTINUE TO MONITOR STATUS.
[2018-12-15 09:51] VITALS: BP 145/74
--- NOTE | 2018-12-15 10:00 | NUR ---
IVF RESITED ON THE LH WITH ANGIO 22 X1 ATTEMPT DUE TO CONSTANT PRESSURE ON THE LAC SITE AND MACHINE BEEPING; LAC SITE KEPT ON SL; IVF RESUMED ON THE LH IV SITE. WILL CONTINUE TO MONITOR STATUS.
--- NOTE | 2018-12-15 11:45 | NUR ---
DAYRON FROM [facility] IS HERE TO MEET WITH PT'S DAUGHTER AND HAVE HER SIGN PAPERS. SHE SAID SHE WILL LOOK FOR PLACEMENTS WHEN PAPERS ARE SIGNED.
--- NOTE | 2018-12-15 14:21 | NUR ---
PT IS SLEEPING AT THIS TIME.
--- NOTE | 2018-12-15 14:42 | NUR ---
PHYSICAL THERAPY DAILY NOTES CO-SIGN All documentation done by the Hospital Security Officer for 12/15/18 has been reviewed. I agree with the documentation. Reviewed/Co-Signed by: Maria A Wahl PT Documentation Done by: NAZARIO AARON PTA
[2018-12-15] MEDS ORDERED: TYL325 PO (15:18)
[2018-12-15] MEDS ORDERED: ACETAMINOPHEN-H1 TA1 PO (15:18)
[2018-12-15] MEDS ORDERED: LOP50 PO (15:18)
[2018-12-15] MEDS ORDERED: FLA500 PO (15:19)
[2018-12-15] MEDS ORDERED: ROC1I IV (15:20)
--- NOTE | 2018-12-15 17:53 | NUR ---
PT IS CONVERSING TO FAMILY VISITORS. SHE WAS SEEN EATING UPPER SORBIAN FRIES AND FAMILY WAS INFORMED THAT OUTSIDE FOOD NEEDS DOCTORS ORDER. THEY VERBALIZED UNDERSTNDING. PT STILL WITH ON/FF ABD PAIN ON THE RT SIDE; SHE WAS EDUACATED PT TO ASK FOR PAIN MED PRN. WILL CONTINUE TO MONITOR STATUS.
--- NOTE | 2018-12-15 19:20 | NUR ---
RECIEVED PATIENT RESTING COMFORTABLY IN BED WITH NO SIGNS OF ACUTE DISTRESS AT THIS TIME. PT IS A/0X3 TO PERSON, PLACE, TIME , BUT NOT TO SITUATION, PT HAS NO COMPLAINTS OF BURNHAM OR DIZZINESS, PT HAS NO COMPLAINTS OF CHEST PAIN AT THIS TIME, PERIPHERAL PULSES PALPABLE, NO EDEMA PRESENT, LUNG SOUNDS CTA, NO SOB NOTED AT THIS TIME, BOWEL SOUNDS ACTIVE, ABD SOFT ROUND, NONTENDER, PT VOIDS FREE OF IRRITATION OR BURNING, PT IS AMBULATORY WITH WALKER AT BEDSIDE, SAFETY PRECAUTIONS IN PLACE, WILL CONTINUE TO MONITOR
[2018-12-15 20:54] VITALS: BP 119/94
--- NOTE | 2018-12-15 21:40 | NUR ---
PT RESTING COMFORTABLY IN BED WITH NO SIGNS OF ACUTE DISTRESS, SAFETY PRECAUTIONS IN PLACE WILL CONTINUE TO MONITOR
--- NOTE | 2018-12-15 23:25 | NUR ---
PT UP AND AMBULATED TO RESTROOM AND HAD ONE UNMEASURED VOID, PT RETURNED TO BED,SAFETY PRECAUTIONS IN PLACE, WILL CONTINUE TO MONITOR
--- NOTE | 2018-12-16 02:50 | NUR ---
PT SLEEPING COMFORTABLY IN BED WITH NO SIGNS OF ACUTE DISTRESS AT THIS TIME, REPIRATIONS EVEN AND UNLABORED SAFETY PRECAUTIONS MAINTAINED, WILL CONTINUE TO MONITOR
--- NOTE | 2018-12-16 05:22 | NUR ---
PT SLEPT THROUGH MOST OF THE NIGHT,HAD NO EPISODES OF ACUTE DISTRESS, SAFETY PRECAUTIONS WERE MAINTAINED THROUGH OUT SHIFT, WILL CONTINUE TO MONITOR AND ENDORSE CARE TO ONCOMING RN
[2018-12-16 06:05] VITALS: BP 143/80
--- NOTE | 2018-12-16 07:30 | NUR ---
RECEIVED PT IN BED. ASSESSED AND DOCUMENTED. DENIES ANY PAIN THIS TIME. VERY TALKATIVE ABOUT SHE JUST HAD AN ACCIDENT OF BM IN THE FLOOR WHEN SHE TRY TO GET UP. BM WAS CLEANED UP AND HOUSE KEEPER MOPE THE FLOOR. PT IS STABLE. SAFTEY PRECAUTIONS ARE IN PLACE. BEDALARM ON. CLOSELY MONITERING THE PT.
[2018-12-16 09:30] VITALS: BP 141/77
--- NOTE | 2018-12-16 10:00 | NUR ---
PT'S DAUGHTER CALLED AND SAID SHE HAS NOT TALK TO A DOCTOR YET ABOUT HER MOTHER CONDITION. INFORMED DAUGHTER WILL CALL THE DOCTOR AND INFORM. SHE IS HAPPY.
--- NOTE | 2018-12-16 10:34 | NUR ---
PT C/O ABDOMINAL PAIN AND BACK PAIN,01/30 AT 0934. ADMINISTERED NORCO PO AND REASSESSED NOW, PT SAID SHE GOT LITTILE BETTER BUT STILL HAS PAIN, PAGED TO INFORM ABOUT PT PAIN.
--- NOTE | 2018-12-16 11:08 | NUR ---
CALLED, INFORMED HIM ABOUT PT STILL IN AND ALSO INFORMED ABOUT PT'S DAUGHTER'S REQUEST. HE SAID HE IS COMING AT 1500 AND HE CAN SPEAK WITH FAMILY AT THAT TIME. INFORMED PT'S DAUGHTER ABOUT THAT. ALSO RECEIVED ORDER FOR MORPHIN IV 4MG AND GIVEN.
--- NOTE | 2018-12-16 11:38 | NUR ---
PT IS RESTING IN THE BED, SAID NO MORE ANY PAIN AND VERY COMFORTABLE. PT'S SON AT BEDSIDE.
[2018-12-16 12:03] LABS: BASOPHIL % 0.4 % (0-2)
[2018-12-16 12:05] LABS: PLATELET COUNT 121 x10^3mcL (130-400); RED CELL DISTRIBUTION WIDTH 15.4 % (11.5-14.5)
[2018-12-16 12:11] LABS: CALCIUM 8.6 mg/dL (8.5-10.1); CARBON DIOXIDE 22.9 mmol/L (21-32); CHLORIDE SERUM 103 mmol/L (98-107); CREATININE SERUM 0.9 mg/dL (0.6-1.0); GLUCOSE SERUM 307 mg/dL (74-106); POTASSIUM SERUM 4.1 mmol/L (3.5-5.1); SODIUM SERUM 135 mmol/L (136-145)
[2018-12-16 12:48] VITALS: BP 139/69
--- NOTE | 2018-12-16 15:45 | NUR ---
DR ESTEVEZ NOTIFIED THAT [facility] HAS A FACILITY TO TRANSFER PATIENT BUT THEY HAVE A CONCERN ABOUT CONTINUING IV ANTIBIOTICS. DR ESTEVEZ ALSO NOTIFIED THAT FAMILY REQUEST TO TALK TO PHYSICIAN. DR ESTEVEZ WENT TO THE ROOM AND EXPLAINED TO FLOR- PATIENT'S DAUGHTER THE CARE PLAN. CODE STATUS -DNR/DNI WAS DISCUSSED AND IN AGREEMENT WITH FAMILY. RE: CONTINUATION OF IV ANTIBIOTICS AT SNF DR ESTEVEZ SAID THAT HE WILL MAKE THE DECISION BASED ON BLOOD CULTURE SENSITIVITY. CALLED ESTELA FROM [facility] AND SHE CLARIFIED WITH DR ESTEVEZ THAT THE SNF FOUND IS NOT DOING IV ANTIBIOTICS. DR ESTEVEZ CHANGED IV ANTIBIOTICS TO PO. ESTELA FROM [facility] MADE AWARE AND SHE SAID THAT PATIENT WILL GO TO SNF TOMORROW AND SHE WILL COME IN IN THIS EVENING TO GET DC ORDERS AND DISCUSS WITH FAMILY. PATIENT'S DAUGHTER AND ATTENDING NURSE PARESH MADE AWARE ABOUT THIS PLAN.
[2018-12-16] MEDS ORDERED: CIPRO500 MG PO (16:01)
[2018-12-16] MEDS ORDERED: SIMETHICONE80 MG CH (16:08)
--- NOTE | 2018-12-16 17:04 | NUR ---
PT IS STABLE. DENIES ANY PAIN. FAMILY AT BEDSIDE.
[2018-12-16 17:34] VITALS: BP 161/71
--- NOTE | 2018-12-16 19:25 | NUR ---
PT RESTING IN BED COMFORTABLY, DENIES ANY PAIN. GAVE REPORT TO SODA COLUMN OPERATOR NURSE.
--- NOTE | 2018-12-16 19:30 | NUR ---
RECIEVED PATIENT RESTING COMFORTABLY IN BED WITH NO COMPLAINTS OF ACUTE DISTRESS AT THIS TIME, PT IS A/O X 3 TO PERSON, PLACE, AND TIME, BUT NOT SITUATION, NO COMPLAINTS OF BURNHAM OR DIZZINESS, PERIPHERAL PULSES PALPABLE, NO EDEMA NOTED AT THIS TIME, LUNG SOUNDS CLEAR TO ASCULATATION NO SOB OR DIFFICULTY BREATHING AT THIS TIME ON RA TOLERATING WELL, BOWEL SOUNDS ACTIVE, ABD SOFT ROUND NONTENDER, PT VOIDS FREE OF BURNING OR IRRITATION, PT IS AMBULATORY, SKIN INTACT AND DRY, IV TO THE RW 22 G, NO SIGNS OF REDNESS OR SWELLING, SAFETY PRECAUTIONS IN PLACE WILL CONTINUE TO MONITOR
[2018-12-16 20:30] VITALS: BP 166/88
--- NOTE | 2018-12-16 22:35 | NUR ---
PT SLEEPING IN BED COMFORTABLY NO SIGNS OF ACUTE DISTRESS AT THIS TIME, RESPIRATIONS EVEN AND UNLABORED, SAFETY PRECAUTIONS IN PLACE, WILL CONTNUE TO MONITOR
[2018-12-17] VITALS: BP 132/61
--- NOTE | 2018-12-17 00:26 | NUR ---
PT SLEEPING WITH NO SIGNS OF ACUTE DISTRESS, RESPIRATIONS EVEN, AND UNLABORED, SAFETY PRECAUTIONS MAINTAINED, WILL CONTINUE TO MONITOR
--- NOTE | 2018-12-17 03:19 | NUR ---
PT SLEEPING IN BED COMFORTABLY WITH NO SIGNS OF DISTRESS AT THIS TIME, RESPIRATIONS EVEN AND UNLABORED, SAFETY PRECAUTIONS IN PLACE WILL CONTINUE TO MONITOR
--- NOTE | 2018-12-17 05:12 | NUR ---
PT SLEPT THROUGH MOST OF THE NIGHT AND HAD NO EPISODES OF ACTE DISTRESS DURING SHIFT, THE PATIENT HAD ONE EPISODE OF HYPERTENSION BP 166/88 WHICH WAS TREATED WITH CLONADINE PRN PER PHYSICIAN ORDER AFTER WHICH THE BP REDUCED TO 132/61, PT HAD NO COMPLAINTS OF PAIN DURING SHIFT, PT WAS UP AND AMBULATED TWO TIMES TO THE BATHROOM TO VOID, SAFETY PRECAUTIONS WERER MAINTAINED THROUGHOUT SHIFT, WILL CONTINUE TO MONITOR AND ENDORSE CARE TO ONCOMING RN
[2018-12-17 06:30] VITALS: BP 153/75
[2018-12-17 07:35] VITALS: BP 115/67
--- NOTE | 2018-12-17 08:00 | NUR ---
ALERT AND ORIENTED TO SELF AND OTHERS. CONFUSED WITH EVENT. BREATHING FREELY ON RA. SITTER IN ROOM TO PROVIDE ASSISTANCE IF NEEDED. GENERALZIED WEAKNESS. ASSIST WITH BRP. CALL LIGHT WITHIN REACH. INTERMITTENT ABD PAIN. MORPHINE HELPFUL
--- NOTE | 2018-12-17 10:19 | NUR ---
SPOKE WITH DAYRON DANIELSON: TRANSFER PF PT TO [facility] IN [place]. HER DTR WILL BE PICKING HER UP BETWEEN 1100 AND 1130. SHE WILL BE ON [facility] RM 29 B [phone]. ERIN NOTIFIED.
[2018-12-17 11:45] VITALS: BP 115/67
--- NOTE | 2018-12-17 11:56 | NUR ---
REPORT GIVEN TO CRISTOBAL AT [facility].
[2018-12-17 13:02] VITALS: BP 162/76
== END 2018-12-17 13:30 | disposition home or self-care (01) | DRG 871 ==
LOC: ED 11:35 → IC 20:25 → DU 20:25 → IC 22:56 → DU 12-11 17:30 → MU 12-17 12:26
PROVIDERS: Emergency Medicine; Internal Medicine Pulmonary Disease; ADMIT Internal Medicine Pulmonary Disease
DX: A41.51 Sepsis due to Escherichia coli [E. coli] (principal); R65.21 Severe sepsis with septic shock; N17.0 Acute kidney failure with tubular necrosis; G93.41 Metabolic encephalopathy; C25.9 Malignant neoplasm of pancreas, unspecified; R44.0 Auditory hallucinations; R65.20 Severe sepsis without septic shock; E11.9 Type 2 diabetes mellitus without complications; Z66 Do not resuscitate; E86.0 Dehydration; E03.9 Hypothyroidism, unspecified; I10 Essential (primary) hypertension; Z79.84 Long term (current) use of oral hypoglycemic drugs
CPT/HCPCS: 82962; 97110-GP; 97116-GP; 97530-GP; B4164; J0360; J0696; J1630; J1644; J1815; J1885; J1956; J2060; J2270; J2405; J2543; J3370; J3475; J3490; J7030; J7040; J7042; J7050; Q0092